=== PATIENT | female | born 1940 | race Caucasian/White ===

== ENCOUNTER 2020-10-16 06:38 | Inpatient (IN) | payer OTHER ==
[~2020-10-16] VITALS: Ht 154.9 cm; Wt 69.0 kg
[2020-10-16] MEDS ORDERED: LOPRESSOR 50 MG50 MG PO (10:47)
[2020-10-16] MEDS ORDERED: SYNTHROID75 MCG PO (10:47)
[2020-10-16] MEDS ORDERED: LEVETIRACETAM750 MG PO (10:48)
[2020-10-16] MEDS ORDERED: RALOXIFENE HCL60 MG PO (10:48)
[2020-10-16] MEDS ORDERED: PRAVASTATIN SOD40 MG PO (10:49)
[2020-10-16] MEDS ORDERED: STIOLTO RESPIMAT4 GM INH (10:50)
[2020-10-16] MEDS ORDERED: DULOXETINE HCL60 MG PO (10:51)
[2020-10-16] MEDS ORDERED: BUSPIRONE HCL15 MG PO (10:52)
[2020-10-16] MEDS ORDERED: ATIVAN 1MG TABLE1 MG PO (10:52)
[2020-10-16] MEDS ORDERED: MONTELUKAST SOD10 MG PO (10:52)
[2020-10-16] MEDS ORDERED: LISINOPRIL30 MG PO (10:54)
[2020-10-16] MEDS ORDERED: VITAMIN C1000 MG PO (10:56)
[2020-10-16] MEDS ORDERED: CENTRUM COMPLE1 EACH PO (10:57)
[2020-10-16] MEDS ORDERED: HAIR, SKIN & N1 EACH PO (10:57)
[2020-10-16 11:18] LABS: HEMOGLOBIN 12.6 gm/dl (12.3-15.3); RED BLOOD COUNT 3.78 M/UL (4.00-5.10); WHITE BLOOD COUNT 8.3 K/UL (4.5-11.0)
[2020-10-16 14:12] LABS: BUN/CREATININE RATIO 16 (0-10)
[2020-10-17 05:46] LABS: HEMOGLOBIN 13.1 gm/dl (12.3-15.3); RED BLOOD COUNT 3.87 M/UL (4.00-5.10)
[2020-10-17 06:11] LABS: BUN/CREATININE RATIO 18 (0-10)
[2020-10-18 05:35] LABS: HEMOGLOBIN 12.8 gm/dl (12.3-15.3); RED BLOOD COUNT 3.8 M/UL (4.00-5.10); WHITE BLOOD COUNT 7.8 K/UL (4.5-11.0)
[2020-10-18 05:44] LABS: BUN/CREATININE RATIO 15 (0-10)
[2020-10-19 02:54] LABS: HEMOGLOBIN 12.3 gm/dl (12.3-15.3); RED BLOOD COUNT 3.68 M/UL (4.00-5.10); WHITE BLOOD COUNT 8.8 K/UL (4.5-11.0)
[2020-10-19 03:08] LABS: BUN/CREATININE RATIO 15 (0-10)
[2020-10-19] MEDS ORDERED: NITROGLYCERIN0.4 MG SL (10:10)
[2020-10-19] MEDS ORDERED: ATORVASTATIN CA20 MG PO (10:10)
[2020-10-19] MEDS ORDERED: ISOSORBIDE MONO10 MG PO (10:10)
[2020-10-19] MEDS ORDERED: ASPIRIN EC81 MG PO (10:11)
== END 2020-10-19 12:15 | disposition home or self-care (01) | DRG 281 ==
LOC: PROG CARE 10:27
PROVIDERS: Internal Medicine; Physician Assistant Medical; ADMIT Internal Medicine
PROC: B24BZZ4 Ultrasonography of Heart with Aorta, Transesophageal (ICD-10-PCS; 2020-10-16)
PROC: 4A023N7 Measurement of Cardiac Sampling and Pressure, Left Heart, Percutaneous Approach (ICD-10-PCS; principal; 2020-10-18)
PROC: B2111ZZ Fluoroscopy of Multiple Coronary Arteries using Low Osmolar Contrast (ICD-10-PCS; 2020-10-18)
PROC: B2151ZZ Fluoroscopy of Left Heart using Low Osmolar Contrast (ICD-10-PCS; 2020-10-18)
DX: I21.4 Non-ST elevation (NSTEMI) myocardial infarction (principal); J96.11 Chronic respiratory failure with hypoxia; I10 Essential (primary) hypertension; E78.5 Hyperlipidemia, unspecified; Z20.822 Contact with and (suspected) exposure to COVID-19; E03.9 Hypothyroidism, unspecified; M81.0 Age-related osteoporosis without current pathological fracture; F32.9 Major depressive disorder, single episode, unspecified; F41.9 Anxiety disorder, unspecified; G56.00 Carpal tunnel syndrome, unspecified upper limb; I27.20 Pulmonary hypertension, unspecified; I08.3 Combined rheumatic disorders of mitral, aortic and tricuspid valves; J44.9 Chronic obstructive pulmonary disease, unspecified; Z99.81 Dependence on supplemental oxygen; Z85.3 Personal history of malignant neoplasm of breast; Z79.82 Long term (current) use of aspirin; Z79.899 Other long term (current) drug therapy; Z90.710 Acquired absence of both cervix and uterus; Z98.42 Cataract extraction status, left eye; Z98.41 Cataract extraction status, right eye; Z90.49 Acquired absence of other specified parts of digestive tract; Z88.8 Allergy status to other drugs, medicaments and biological substances; Z88.2 Allergy status to sulfonamides; Z82.49 Family history of ischemic heart disease and other diseases of the circulatory system
CPT/HCPCS: ECHO; 36415; 80048; 80053; 80061; 82550; 82553; 83036; 83735; 84484; 85025; 85027; 85347; 85379; 85610; 85730; 93005; 93306; 93571; 99152; 99153; C1769; C1887; J0153; J0461; J1644; J2250; J3010; J7040; Q9967